=== PATIENT | male | born 1965 | race Caucasian/White ===

== ENCOUNTER → 2019-04-17 | Outpatient (CLI) | payer OTHER ==
--- NOTE | 2019-04-17 15:30 | KCIC ---
PROCEDURE: LUMBAR SPINE MIN 4V STUDY DATE: 04/17/2019 CLINICAL INDICATION / HISTORY: Lumbosacral radiculopathy. TECHNIQUE: Upright AP, lateral and bilateral oblique views of the lumbar spine in addition to lateral upright coned-down lateral view. COMPARISON: None FINDINGS: Five lumbar segments are identified. Lumbar vertebral bodies are normal in height and alignment. Disc height is narrowed at the lumbosacral junction. Pedicles are intact. Mild facet hypertrophy is present most conspicuous at L4-5 and L5-S1. There appears to be mild bony foraminal stenosis bilaterally at the L5-S1 level. IMPRESSION: Disc degenerative change at the lumbosacral junction resulting in mild bilateral bony foraminal stenosis. Electronically signed by: Bryan Aldrich MD (04/17/2019 3:27 PM) [facility]
== END | disposition home or self-care (01) ==
LOC: KCIC 11:18
PROVIDERS: ATTEND Family Medicine
DX: M47.27 Other spondylosis with radiculopathy, lumbosacral region (principal); M89.38 Hypertrophy of bone, other site; M48.07 Spinal stenosis, lumbosacral region
CPT/HCPCS: 72110

== ENCOUNTER → 2019-05-30 | Outpatient (CLI) | payer OTHER ==
--- NOTE | 2019-05-30 09:06 | RAD ---
Complete abdomen ultrasound HISTORY: Elevated liver function tests. FINDINGS: Bowel gas shadowing limits visualization of segments of the tail the pancreas, abdominal aorta and IVC, visualized segments are normal. Heterogeneous increased liver echogenicity most likely representing steatosis. No liver mass or nodularity documented. No gallstones or fibroid changes in the gallbladder. No biliary ductal dilation common bile duct diameter 4 mm. Right renal length 11.9 cm. Left renal length 11.9 cm. Normal renal parenchymal echogenicity and cortical thickness. No renal mass, calculus or hydronephrosis documented. Spleen length 9.2 cm. IMPRESSION: Increased liver echogenicity most consistent with steatosis. Electronically signed by: Pranav Mckeon MD (05/30/2019 9:03 AM) [id number]
== END | disposition home or self-care (01) ==
LOC: US 06:27
PROVIDERS: ATTEND Internal Medicine Gastroenterology
DX: R94.5 Abnormal results of liver function studies (principal)
CPT/HCPCS: 76700